=== PATIENT | male | born 2000 | race African-American/Black ===

== ENCOUNTER 2019-03-18 00:33 | Emergency (ER) | payer BC, OTHER ==
[~2019-03-18] VITALS: Ht 182.9 cm; Wt 70.3 kg
[2019-03-18 01:09] LABS: HEMOGLOBIN 14.2 gm/dL (14.0-18.0); MCH 26.9 pg (26.0-34.0); MCV 81.4 fL (80.0-100.0); RBC 5.28 mil/uL (4.50-6.00); RDW 12.8 % (10.5-14.5)
[2019-03-18 01:15] LABS: CALCIUM 9.4 mg/dL (8.5-10.1); MAGNESIUM 1.9 mg/dL (1.8-2.4); POTASSIUM 4.1 mmol/L (3.5-5.1)
[2019-03-18 03:20] VITALS: BP 128/81
--- NOTE | 2019-03-18 08:05 | EKG ---
[address] [address] [place] [address] ELECTROCARDIOGRAM REPORT Name: CANDELARIA GOMES Room #: DEP Sera#: [id number] ������������������ Admission: 03/18/19 ������������������ Attend Phys: Discharge: 03/18/19 ������������������ Date of : [birth year] Report #: [id number] ����������������������������������������������������������������� [id number] THIS REPORT FOR: //name// [facility] ED Test Date: 2019-03-18 Test Time: 01:23:30 Pat Name: CANDELARIA GOMES Department: Room: Gender: Qualitative Researcher: mariam : 2000 Requested By: Ralf Lopez Order Number: [id number] MD: Jackson Avina Measurements Intervals [place] Rate: 44 P: 43 SC: 138 QRS: 45 QRSD: 87 T: 31 QT: 417 QTc: 357 Interpretive Statements Sinus bradycardia ST elev, probable normal early repol pattern No previous ECG available for comparison Electronically Signed On 03-18-2019 8:05:02 CDT by Jackson Avina [email or web address] ��������������������������������������������� <ELECTRONICALLY SIGNED> ���������������������������������������� By: Jackson Avina MD, [facility] ��������������������������������������������� 03/18/19 [id number] Jackson Avina MD, FACC /EPI
== END 2019-03-18 03:31 | disposition home or self-care (01) ==
LOC: ER 00:33
PROVIDERS: Emergency Medicine
DX: R55 Syncope and collapse (principal); F41.0 Panic disorder [episodic paroxysmal anxiety]